=== PATIENT | male | born 1950 | race Caucasian/White ===

== ENCOUNTER 2017-07-10 17:27 | Emergency (ER) | payer OTHER ==
[2017-07-10 19:28] LABS: ALT (SGPT) 15 U/L (8-55); AST (SGOT) 26 U/L (5-34); Albumin 3.9 g/dL (3.4-4.8); Alkaline Phosphatase 95 U/L (40-150); Anion Gap 12 mmol/L (10-20); BUN (Urea Nitrogen) 6 mg/dL (8.4-25.7); Bilirubin, Total 1.3 mg/dL (0.2-1.2); Calc. Creatinine Clearance 0 mL/min (70-130); Calcium 8.6 mg/dL (7.8-10.44); Carbon Dioxide 21 mmol/L (23-31); Chloride 89 mmol/L (98-107); Estimated GFR-MDRD Greater than 90; Globulin 3.2 g/dL (2.4-3.5); Glucose 88 mg/dL (80-115); Protein, Total 7.1 g/dL (5.8-8.1)
[2017-07-10 19:33] LABS: Sodium 118 mmol/L (136-145)
[2017-07-10] MEDS ORDERED: Fentanyl 100 MCG/2 ML VIAL ONE (19:39)
[2017-07-10] MEDS ORDERED: Gabapentin 300 MG CAP PO SCH (21:45)
== END 2017-07-10 22:16 | disposition left against medical advice (07) ==
LOC: ERS 17:27
DX: E87.1 Hypo-osmolality and hyponatremia (principal); E86.0 Dehydration; K74.60 Unspecified cirrhosis of liver; I10 Essential (primary) hypertension; J45.909 Unspecified asthma, uncomplicated; Z71.6 Tobacco abuse counseling; F17.210 Nicotine dependence, cigarettes, uncomplicated
CPT/HCPCS: 36415; 80053; 93005; 96361; 96374; 99406; J3010

== ENCOUNTER 2017-07-10 22:17 | Inpatient (IN) | payer MEDICARE, OTHER ==
[2017-07-11] MEDS ORDERED: HYDROcodone/Acetaminophen 5/325 mg Tablet ONE (01:23)
[2017-07-11] MEDS ORDERED: HYDROcodone/Acetaminophen 5/325 mg Tablet PO PRN ×2 (02:08→08:21)
[2017-07-11] MEDS ORDERED: Sodium Chloride 0.9% 1,000 ML IV SCH (02:15)
[2017-07-11 02:42] VITALS: BMI 19.5
[2017-07-11] MEDS ORDERED: Ondansetron ODT 4 MG TAB PO PRN (04:01)
[2017-07-11] MEDS ORDERED: Ondansetron HCl/PF 4 MG/2 ML Vial IVP PRN (04:01)
--- NOTE | 2017-07-11 04:35 | HP ---
PRIMARY CARE PHYSICIAN: Dr. Bj Polo in [place]. He also sees the Dr. Harjit Yao, who is his pain s pecialist. CHIEF COMPLAINT: "My stomach is messed up." HISTORY OF PRESENT ILLNESS: Mr. Forde is a 67-year-old gentleman who has a history of cirrhosis, also has a history of chronic pain from cervical disk disease as well as multiple fractures in the pa st. He says that over the past approximately week, he says that his stomach has been "messed up." W hen asked what is he mean by this, he says that he has been throwing up every time he tries to eat an ything and then also been having diarrhea since Friday. He also says that his stomach feels upset a nd somewhat hurting. He is very vague in the description. He denies any hematemesis. He denies any melena. He also denies any fevers or chills. He also denies any increase in abdominal girth and sa ys that his weight has been about the same over the past few years. He went to the emergency room in [place] and during his evaluation, it was found that he had sodium of 111 and for this reason, he was transferred to our facility for further evaluation. The patient says he does have a history of c irrhosis, but no other medical condition that he is aware of. He does admit to taking some ibuprofen almost daily. He says usually 1 or 2 in the morning, otherwise, no other complaints. REVIEW OF SYSTEMS: Constitutional: No fevers, no chills, no night sweats, no weight loss. HEENT: He denies any headaches, no dizziness, no visual changes, no sore throat, rhinorrhea, no neck pain, n o adenopathy. Pulmonary: He does say he has congestion off and on and typically will take " head of f his Combivent to help." Cardiovascular: He denies any chest pain, no shortness of breath, no PND, no orthopnea. Gastrointestinal: As stated in the history of present illness. Genitourinary: No u rinary frequency, hematuria, no hesitancy. Neurologic: No focal weakness, numbness, no seizures. P sychiatric: No symptoms of anxiety or depression. Skin and Integument: No skin changes. No rash. PAST MEDICAL HISTORY: Significant for cirrhosis, cervical disk disease, and chronic pain. He has gan d vocal cord cancer, status post radiation therapy. PAST SURGICAL HISTORY: Hernia surgery. He has had multiple fractured bones like his hip, rib fractu res, lung puncture etc. ALLERGIES: PENICILLIN. SOCIAL HISTORY: He is . He has no children of his own. He smokes about third of a pack of c igarettes a day. He also drinks about a 6-pack of beer a day. FAMILY HISTORY: His mother had a history of hypertension and stroke. MEDICATIONS: Include omeprazole 20 mg twice a day, Combivent 2 puffs q.i.d., gabapentin 600 mg in th e day and 1200 in the evening, Percocet one tablet q.6 hours as needed and that is 10/325, methocarba mol 500 mg t.i.d., Sonata 10 mg at bedtime. PHYSICAL EXAMINATION: GENERAL: He is alert and oriented. He appears to be in no distress. He is lucid and appears to be at baseline level of functioning. VITAL SIGNS: Blood pressure was 158/72, heart rate 75, respiratory rate of 18, temperature is 98.8. HEENT: Pupils are equal, round, and reactive. Extraocular muscles are intact. His sclerae anicteri c. Throat no erythema, no exudates. NECK: No adenopathy, no bruits. LUNGS: Clear. He does have some mild expiratory wheezing bilaterally. CARDIOVASCULAR: He has a normal S1, S2. I do not appreciate any S3 or S4. ABDOMEN: Soft, obese, nontender, nondistended. Positive for bowel sounds. No rebound, no guarding. There is no evidence of any fluid wave. EXTREMITIES: He has got 1-2+ pitting edema. NEUROLOGICALLY: The exam is nonfocal. SIGNIFICANT LABORATORY RESULTS: His sodium at the [facility] was 111, at 1851 it was 118. P otassium 4.0, chloride is 89, CO2 is 21, BUN of 6, creatinine 0.73, glucose is 88. His CBC: White b lood cell count was 6.7, hemoglobin 15, hematocrit is 40.9, platelet count is 107. Urinalysis was es sentially normal. Alcohol level was less than 10. He had a CT scan of the brain, which showed no in tracranial abnormalities. ASSESSMENT AND PLAN: This is a 67-year-old gentleman who presents to the emergency room in [place] with some nonspecific abdominal complaints. He was found to have sodium of 111. It is possible harry t the abdominal symptoms could be related to the low sodium; however, if after correction of the sodi um, the abdominal symptoms persist, he may require a GI consultation. He is at risk for peptic ulcer disease with his history of drinking as well as nonsteroidal anti-inflammatory drugs use. 1. For hyponatremia, I suspect this is likely from beer potomania, given the degree of the hyponatre kenneth. Nephrology will be consulted. He has already been started on IV saline and he has had several hours of the IV saline. We will go ahead and repeat his BNP and hold off on continued IV fluids unti l we get the results of the BNP, as we do not want to correct too quickly. Urine sodium and osmolali ty will be checked. 2. History of alcohol abuse, he will be placed on ASE protocol. I did discuss the dangers of excess roselia alcohol use. He seems to shrug this off and say that "you got to of something at some point. " 3. Probable chronic obstructive pulmonary disease, I will place him on DuoNebs during his hospital s jen likely both scheduled and p.r.n.
[2017-07-11] MEDS: oxyCODONE/Acetaminophen 5 mg/325 mg Tablet PO PRN ×4 (05:09→23:54)
[2017-07-11] MEDS: Methocarbamol 500 MG TAB PO SCH ×3 (05:15→23:56)
[2017-07-11 05:35] LABS: Anion Gap 12 mmol/L (10-20); BUN (Urea Nitrogen) 6 mg/dL (8.4-25.7); Calc. Creatinine Clearance 82 mL/min (70-130); Calcium 9.1 mg/dL (7.8-10.44); Carbon Dioxide 21 mmol/L (23-31); Chloride 99 mmol/L (98-107); Estimated GFR-MDRD Greater than 90; Glucose 83 mg/dL (80-115); Potassium 3.8 mmol/L (3.5-5.1); Sodium 128 mmol/L (136-145)
[2017-07-11] MEDS ORDERED: Artificial Tears 18 DROP/0.9 ML EA EYE PRN (08:21)
[2017-07-11] MEDS ORDERED: Loperamide HCl 2 MG CAP PO PRN (08:21)
[2017-07-11] MEDS ORDERED: Senokot 8.6 MG TAB PO PRN (08:21)
[2017-07-11] MEDS ORDERED: Eucerin (Mineral Oil/Petrolatum,White) 30 gm Jar TOP PRN (08:21)
[2017-07-11] MEDS ORDERED: Milk Of Magnesia 30 ML UDCUP PO PRN (08:21)
[2017-07-11] MEDS ORDERED: Loratadine 10 MG TAB PO PRN (08:21)
[2017-07-11] MEDS ORDERED: Sodium Chloride 0.65% Nasal 44 ML BOT EA NARE PRN (08:21)
[2017-07-11] MEDS ORDERED: Acetaminophen 325 MG TAB PO PRN (08:21)
[2017-07-11] MEDS ORDERED: hydrALAZINE 20 MG/ML VIAL SLOW IVP PRN (08:21)
[2017-07-11] MEDS ORDERED: Mag-Al 1200 mg/1200 mg/30 ML UDCUP PO PRN (08:21)
[2017-07-11] MEDS ORDERED: Chloraseptic Spray 180 ml Bottle PO PRN (08:21)
[2017-07-11] MEDS ORDERED: Diabetic Tussin 200 MG/10 ML UDCUP PO PRN (08:21)
[2017-07-11] MEDS: Gabapentin 300 MG CAP PO SCH ×3 (09:43→23:57)
[2017-07-11] MEDS: Nicotine 14 MG PATCH TD SCH (09:44)
[2017-07-11] MEDS: Enoxaparin Sodium 30 MG/0.3 ML SYRINGE SC SCH (09:44)
[2017-07-11] MEDS: Pantoprazole 40 MG VIAL IVP SCH (09:44)
--- NOTE | 2017-07-11 10:42 | CON ---
DATE OF CONSULTATION: 07/11/2017 HISTORY OF PRESENT ILLNESS: Mr. Forde is a 67-year-old white male who was transferred from [facility] due to the hyponatremia. He initially was found to have a serum sodium of 111. He was transf erred to the ER here and was empirically given volume repletion with subsequent improvement of his se rum sodium. With volume repletion and improvement of serum sodium it is very suggestive that he may simply have hypovolemic hyponatremia. This morning he is feeling better, he has been taking Exelon. REVIEW OF SYSTEMS: Positive for epigastric discomfort, positive for nausea and vomiting. No diarrhe a, no constipation. Decreased appetite. Positive for chronic pain. No headache, no fever or chills . No gross hematuria. No dysuria, no urinary frequency. No fever. Positive for abdominal discomfo rt. No sore throat, no diplopia. Appetite fair. HOME MEDICATIONS: Included oxycodone 1 tablet q.6h, Sonata 10 mg at bedtime, omeprazole 20 mg p.o. b.i.d., metoclopramide 500 mg p.o. t.i.d., Combivent 2 puffs q.i.d., gabapentin 1200 mg q.p.m. and 6 00 mg in the a.m. PAST MEDICAL HISTORY: 1. History of chronic obstructive pulmonary disease. 2. COPD. 3. Cirrhosis. 4. Chronic joint pains. 5. Vocal cord cancer - in remission status post radiation. PAST SURGICAL HISTORY: 1. Status post hernia. 2. Status post multiple bone surgeries. ALLERGIES: PENICILLIN. SOCIAL HISTORY: The patient lives around the [facility]. He is . He has no children, bu t he has 3 stepchildren. He smoked for the last 50 years. Currently, smoking one-third pack a day. Alcohol -- 6 pack of beer every day. He is a retired mechanic welder. Education 3 years of college. No IV drug abuse. FAMILY HISTORY: No family history of ESRD. PHYSICAL EXAMINATION: VITAL SIGNS: Blood pressure is 158/72, heart rate 75, respiratory rate 18, temperature 98.8, pulse o x 93%. GENERAL: Noted to be awake, alert, comfortable, not in distress. SKIN: Adequate turgor. HEENT: He has pinkish conjunctivae, anicteric sclerae. NECK: No neck mass, no carotid bruits, no JVD. CHEST: No deformities. LUNGS: Clear breath sounds. No wheezing, no crackles. HEART: Normal sinus rhythm. No murmur, no gallops or rubs. ABDOMEN: Globular, soft, nontender. No masses. EXTREMITIES: No edema, no deformities. LABORATORY: 07/10/2017 - Serum sodium - from [place] [facility] 111. 07/10/2017 - Laboratories from [place] showed sodium of 118, potassium 4, chloride 89, carbon diox almita 21. 07/11/2017 - serum sodium 128, potassium 3.8, chloride 99, carbon dioxide 21, BUN 6, creatinine 0.75, calcium is 9.1. ASSESSMENT AND PLAN: Hyponatremia - most likely secondary to hypovolemic hyponatremia. Much improve d with normal saline. The plan is to continue IV fluid until his serum sodium approximates normal ra nge. Continue supportive care. There is no indication for any hypertonic saline with this patient. Overall, I agree with current management, recheck basic metabolic panel in the a.m.
--- NOTE | 2017-07-11 11:30 | PDOC.PN ---
- Subjective Encounter Start Date: 07/11/17 Encounter Start Time: 08:10 -: old records requested/rev Patient seen and examined. No new complaints. No overnight events - Objective Resuscitation Status: Resuscitation Status FULL:Full Resuscitation MAR Reviewed: Yes Vital Signs & Weight: Vital Signs (12 hours) Temp Pulse Resp BP BP Pulse Ox 07/11/17 09:40 98.1 F 80 20 122/60 92 L 07/11/17 07:56 91 16 92 L 07/11/17 02:36 98.8 F 75 18 158/72 H 93 L 07/11/17 02:07 98.8 F 75 18 93 L Weight Weight 136 lb 1.6 oz Result Diagrams: 07/11/17 04:28 EKG Reviewed by me: Yes Phys Exam - Physical Examination Constitutional: NAD HEENT: PERRLA, moist MMs, sclera anicteric Neck: no JVD, supple Respiratory: no wheezing, no rales, no rhonchi Cardiovascular: RRR, no significant murmur, no rub Gastrointestinal: soft, no distention, positive bowel sounds abdo discomfort Musculoskeletal: no edema, pulses present Neurological: non-focal, normal sensation, moves all 4 limbs Lymphatic: no nodes Psychiatric: normal affect, A&O x 3 Skin: no rash, normal turgor Dx/Plan (1) Abdominal pain Code(s): R10.9 - UNSPECIFIED ABDOMINAL PAIN Status: Acute (2) Hyponatremia Code(s): E87.1 - HYPO-OSMOLALITY AND HYPONATREMIA Status: Acute (3) Alcohol abuse Code(s): F10.10 - ALCOHOL ABUSE, UNCOMPLICATED Status: Chronic (4) Alcoholic cirrhosis of liver Code(s): K70.30 - ALCOHOLIC CIRRHOSIS OF LIVER WITHOUT ASCITES Status: Chronic (5) COPD (chronic obstructive pulmonary disease) Status: Chronic (6) Cervical disc disease Code(s): M50.90 - CERVICAL DISC DISORDER, UNSP, UNSPECIFIED CERVICAL REGION Status: Chronic (7) Chronic pain disorder Code(s): G89.4 - CHRONIC PAIN SYNDROME Status: Chronic (8) Protein-calorie malnutrition, moderate Code(s): E44.0 - MODERATE PROTEIN-CALORIE MALNUTRITION Status: Chronic (9) Tobacco abuse Code(s): Z72.0 - TOBACCO USE Status: Chronic - Plan cont current plan of care * medication reviewed as below * symptomatic treatment * continue iv protonix * replace and correct sodium * repeat labs tomorrow * counselled to avoid alcohol * selected home medication. Review of Systems - Review of Systems Constitutional: negative: fever, chills, sweats, weakness, malaise, other Eyes: negative: Pain, Vision Change, Conjunctivae Inflammation, Eyelid Inflammation, Redness, Other ENT: negative: Ear Pain, Ear Discharge, Nose Pain, Nose Discharge, Nose Congestion, Mouth Pain, Mouth Swelling, Throat Pain, Throat Swelling, Other Respiratory: negative: Cough, Dry, Shortness of Breath, Hemoptysis, SOB with Excertion, Pleuritic Pain, Sputum, Wheezing Cardiovascular: negative: chest pain, palpitations, orthopnea, paroxysmal nocturnal dyspnea, edema, light headedness, other Gastrointestinal: Abdominal Pain. negative: Nausea, Vomiting, Diarrhea, Constipation, Melena, Hematochezia, Other Genitourinary: negative: Dysuria, Frequency, Incontinence, Hematuria, Retention , Other Musculoskeletal: negative: Neck Pain, Shoulder Pain, Arm Pain, Back Pain, Hand Pain, Leg Pain, Foot Pain, Other Skin: negative: Rash, Lesions, Cash, Bruising, Other - Medications/Allergies Allergies/Adverse Reactions: Allergies Allergy/AdvReac Type Severity Reaction Status Date / Time Penicillins Allergy Verified 07/11/17 02:46 Medications: Current Medications Acetaminophen (Tylenol) 650 mg PO Q4H PRN PRN Reason: Headache/Fever or Mild Pain Hydrocodone Bitart/Acetaminophen ([place] 5/325) 1 tab PO Q4H PRN PRN Reason: Moderate Pain (4-6) Al Hydroxide/Mg Hydroxide (Maalox) 15 ml PO Q4H PRN PRN Reason: Heartburn or Indigestion Albuterol/Ipratropium (Duoneb) 3 ml NEB [id number] PRN PRN Reason: SOB &/or Wheezing Albuterol/Ipratropium (Duoneb) 3 ml NEB [id number] [facility] Last Admin: 07/11/17 07:56 Dose: 3 ml Artificial Tears (Tears Naturale) 0 drop EA EYE PRN PRN PRN Reason: Dry Eyes Enoxaparin Sodium (Lovenox) 30 mg SC 0900 [facility] Last Admin: 07/11/17 09:44 Dose: 30 mg Gabapentin (Neurontin) 300 mg PO 2100 [facility] Gabapentin (Neurontin) 600 mg PO DAILY [facility] Last Admin: 07/11/17 09:43 Dose: 600 mg Gabapentin (Neurontin) 900 mg PO 1700 [facility] Guaifenesin (Robitussin Sf) 200 mg PO Q4H PRN PRN Reason: Cough Hydralazine HCl (Apresoline) 10 mg SLOW IVP Q4H PRN PRN Reason: Systolic BP > 180 Loperamide HCl (Imodium) 2 mg PO PRN PRN PRN Reason: Diarrhea/Loose Stools Loratadine (Claritin) 10 mg PO DAILYPRN PRN PRN Reason: Sinus Symptoms Lorazepam (Ativan) 1 mg SLOW IVP Q4H PRN PRN Reason: Anxiety/Agitation Magnesium Hydroxide (Milk Of Magnesium) 30 ml PO DAILYPRN PRN PRN Reason: Constipation Methocarbamol (Robaxin) 500 mg PO TID [facility] Last Admin: 07/11/17 05:15 Dose: 500 mg Mineral Oil/White Petrolatum (Eucerin Cream) 0 gm TOP BIDPRN PRN PRN Reason: Dry Skin Nicotine (Nicoderm Patch) 14 mg TD Q24HR [facility] Last Admin: 07/11/17 09:44 Dose: 14 mg Ondansetron HCl (Zofran Odt) 4 mg PO Q6H PRN PRN Reason: Nausea/Vomiting Last Admin: 07/11/17 05:09 Dose: 4 mg Ondansetron HCl (Zofran) 4 mg IVP Q6H PRN PRN Reason: Nausea/Vomiting Oxycodone/Acetaminophen (Percocet 5/325) 1 tab PO Q6H PRN PRN Reason: Moderate to Severe Pain (6-10) Last Admin: 07/11/17 05:09 Dose: 1 tab Pantoprazole Sodium (Protonix) 40 mg IVP DAILY [facility] Last Admin: 07/11/17 09:44 Dose: 40 mg Phenol (Chloraseptic [place] 180 Ml Bot) 0 ml PO PRN PRN PRN Reason: Sore Throat Senna (Senokot) 2 tab PO HSPRN PRN PRN Reason: Constipation Sodium Chloride (Flush - Normal Saline) 10 ml IVF Q12HR [facility] Last Admin: 07/11/17 09:45 Dose: 10 ml Sodium Chloride (Flush - Normal Saline) 10 ml IVF PRN PRN PRN Reason: Saline Flush Sodium Chloride ([place] Nasal [place] 0.65%) 0 ml EA NARE QIDPRN PRN PRN Reason: Nasal Congestion
[2017-07-11 14:06] LABS: #Eosinphils 0.3 thou/uL (0.0-0.7); #Lymphocytes 0.5 thou/uL (1.20-3.40); #Monocytes 0.6 thou/uL (0.11-0.59); #Neutrophils 4.4 thou/uL (1.40-6.50); %Basophils 0.5 % (0.0-1.0); %Eosinophils 5.8 % (0.0-10.0); %Lymphocytes 8.2 % (21.0-51.0); %Monocytes 10.7 % (0.0-10.0); %Neutrophils 74.8 % (42.0-75.0); Hemoglobin 14.6 g/dL (14.0-18.0); Mean Corpuscular Hemoglobin 34.7 pg (27.0-31.0); Mean Platelet Volume 7.3 fL (7.4-10.4); Platelet Count 125 thou/uL (130-400); RBC Distribution Width 12.5 % (11.5-14.5); Red Blood Cell (RBC) Count 4.21 mill/uL (4.70-6.10); White Blood Cell (WBC) Count 5.9 thou/uL (4.8-10.8)
[2017-07-11 14:55] LABS: Anion Gap 13 mmol/L (10-20); BUN (Urea Nitrogen) 9 mg/dL (8.4-25.7); Calc. Creatinine Clearance 78 mL/min (70-130); Calcium 9.2 mg/dL (7.8-10.44); Carbon Dioxide 20 mmol/L (23-31); Chloride 100 mmol/L (98-107); Estimated GFR-MDRD Greater than 90; Glucose 141 mg/dL (80-115); Potassium 4.3 mmol/L (3.5-5.1); Sodium 129 mmol/L (136-145)
[2017-07-11 14:56] LABS: ALT (SGPT) 15 U/L (8-55); AST (SGOT) 26 U/L (5-34); Albumin 3.7 g/dL (3.4-4.8); Alkaline Phosphatase 104 U/L (40-150); Bilirubin, Direct 0.5 mg/dL (0.1-0.3); Bilirubin, Total 0.7 mg/dL (0.2-1.2); Protein, Total 6.9 g/dL (5.8-8.1)
[2017-07-11] MEDS: Lorazepam 2 MG/ML VIAL SLOW IVP PRN (23:55)
[2017-07-12 05:04] LABS: #Basophils 0.1 thou/uL (0.0-0.2); #Eosinphils 0.3 thou/uL (0.0-0.7); #Lymphocytes 0.7 thou/uL (1.20-3.40); #Monocytes 0.7 thou/uL (0.11-0.59); #Neutrophils 3.2 thou/uL (1.40-6.50); %Eosinophils 6.1 % (0.0-10.0); %Lymphocytes 13.8 % (21.0-51.0); %Monocytes 14.4 % (0.0-10.0); %Neutrophils 64.7 % (42.0-75.0); Hemoglobin 14.3 g/dL (14.0-18.0); Mean Corpuscular HGB CONC 34.1 g/dL (32.0-36.0); Mean Corpuscular Hemoglobin 35.2 pg (27.0-31.0); Platelet Count 124 thou/uL (130-400); RBC Distribution Width 12.5 % (11.5-14.5); Red Blood Cell (RBC) Count 4.07 mill/uL (4.70-6.10)
[2017-07-12 05:19] LABS: ALT (SGPT) 14 U/L (8-55); AST (SGOT) 25 U/L (5-34); Albumin 3.9 g/dL (3.4-4.8); Alkaline Phosphatase 98 U/L (40-150); Anion Gap 13 mmol/L (10-20); BUN (Urea Nitrogen) 8 mg/dL (8.4-25.7); Bilirubin, Total 0.7 mg/dL (0.2-1.2); Calc. Creatinine Clearance 78 mL/min (70-130); Calcium 9.2 mg/dL (7.8-10.44); Carbon Dioxide 21 mmol/L (23-31); Chloride 103 mmol/L (98-107); Estimated GFR-MDRD Greater than 90; Globulin 3.2 g/dL (2.4-3.5); Glucose 95 mg/dL (80-115); Magnesium 2.1 mg/dL (1.6-2.6); Phosphorus 3.8 mg/dL (2.3-4.7); Potassium 3.8 mmol/L (3.5-5.1); Protein, Total 7.1 g/dL (5.8-8.1); Sodium 133 mmol/L (136-145)
[2017-07-12] MEDS: Methocarbamol 500 MG TAB PO SCH ×3 (06:20→21:06)
[2017-07-12] MEDS: oxyCODONE/Acetaminophen 5 mg/325 mg Tablet PO PRN ×3 (06:24→18:15)
--- NOTE | 2017-07-12 09:15 | PDOC.PN ---
- Subjective Encounter Start Date: 07/12/17 Encounter Start Time: 08:00 Patient seen and examined. No new complaints. No overnight events - Objective Resuscitation Status: Resuscitation Status FULL:Full Resuscitation MAR Reviewed: Yes Vital Signs & Weight: Vital Signs (12 hours) Temp Pulse Resp BP BP Pulse Ox 07/12/17 08:15 97.7 F 75 18 158/77 H 91 L 07/12/17 07:46 78 16 98 07/12/17 03:37 97.3 F L 74 18 150/72 H 97 Weight Admit Weight 136 lb 1.6 oz Weight 136 lb 1.6 oz Result Diagrams: 07/12/17 04:24 07/12/17 04:24 EKG Reviewed by me: Yes Phys Exam - Physical Examination Constitutional: NAD HEENT: PERRLA, moist MMs, sclera anicteric Neck: no JVD, supple Respiratory: no wheezing, no rales, no rhonchi Cardiovascular: RRR, no significant murmur, no rub Gastrointestinal: soft, non-tender, no distention, positive bowel sounds Musculoskeletal: no edema, pulses present Neurological: non-focal, normal sensation, moves all 4 limbs Lymphatic: no nodes Psychiatric: normal affect, A&O x 3 Skin: no rash, normal turgor Dx/Plan (1) Abdominal pain Code(s): R10.9 - UNSPECIFIED ABDOMINAL PAIN Status: Acute (2) Hyponatremia Code(s): E87.1 - HYPO-OSMOLALITY AND HYPONATREMIA Status: Acute (3) Alcohol abuse Code(s): F10.10 - ALCOHOL ABUSE, UNCOMPLICATED Status: Chronic (4) Alcoholic cirrhosis of liver Code(s): K70.30 - ALCOHOLIC CIRRHOSIS OF LIVER WITHOUT ASCITES Status: Chronic (5) COPD (chronic obstructive pulmonary disease) Status: Chronic (6) Cervical disc disease Code(s): M50.90 - CERVICAL DISC DISORDER, UNSP, UNSPECIFIED CERVICAL REGION Status: Chronic (7) Chronic pain disorder Code(s): G89.4 - CHRONIC PAIN SYNDROME Status: Chronic (8) Protein-calorie malnutrition, moderate Code(s): E44.0 - MODERATE PROTEIN-CALORIE MALNUTRITION Status: Chronic (9) Tobacco abuse Code(s): Z72.0 - TOBACCO USE Status: Chronic - Plan cont current plan of care * dc tele * transfer to medical * medication reviewed as below * symptomatic treatment. * ambulate as tolerated Review of Systems - Review of Systems ENT: negative: Ear Pain, Ear Discharge, Nose Pain, Nose Discharge, Nose Congestion, Mouth Pain, Mouth Swelling, Throat Pain, Throat Swelling, Other Respiratory: negative: Cough, Dry, Shortness of Breath, Hemoptysis, SOB with Excertion, Pleuritic Pain, Sputum, Wheezing Cardiovascular: negative: chest pain, palpitations, orthopnea, paroxysmal nocturnal dyspnea, edema, light headedness, other Gastrointestinal: negative: Nausea, Vomiting, Abdominal Pain, Diarrhea, Constipation, Melena, Hematochezia, Other Genitourinary: negative: Dysuria, Frequency, Incontinence, Hematuria, Retention , Other Musculoskeletal: negative: Neck Pain, Shoulder Pain, Arm Pain, Back Pain, Hand Pain, Leg Pain, Foot Pain, Other - Medications/Allergies Allergies/Adverse Reactions: Allergies Allergy/AdvReac Type Severity Reaction Status Date / Time Penicillins Allergy Verified 07/11/17 02:46 Medications: Current Medications Acetaminophen (Tylenol) 650 mg PO Q4H PRN PRN Reason: Headache/Fever or Mild Pain Hydrocodone Bitart/Acetaminophen ([place] 5/325) 1 tab PO Q4H PRN PRN Reason: Moderate Pain (4-6) Al Hydroxide/Mg Hydroxide (Maalox) 15 ml PO Q4H PRN PRN Reason: Heartburn or Indigestion Albuterol/Ipratropium (Duoneb) 3 ml NEB [id number] PRN PRN Reason: SOB &/or Wheezing Albuterol/Ipratropium (Duoneb) 3 ml NEB [id number] [facility] Last Admin: 07/12/17 07:46 Dose: 3 ml Artificial Tears (Tears Naturale) 0 drop EA EYE PRN PRN PRN Reason: Dry Eyes Enoxaparin Sodium (Lovenox) 30 mg SC 0900 [facility] Last Admin: 07/11/17 09:44 Dose: 30 mg Gabapentin (Neurontin) 300 mg PO 2100 [facility] Last Admin: 07/11/17 23:57 Dose: 300 mg Gabapentin (Neurontin) 600 mg PO DAILY [facility] Last Admin: 07/11/17 09:43 Dose: 600 mg Gabapentin (Neurontin) 900 mg PO 1700 [facility] Last Admin: 07/11/17 16:23 Dose: 900 mg Guaifenesin (Robitussin Sf) 200 mg PO Q4H PRN PRN Reason: Cough Hydralazine HCl (Apresoline) 10 mg SLOW IVP Q4H PRN PRN Reason: Systolic BP > 180 Loperamide HCl (Imodium) 2 mg PO PRN PRN PRN Reason: Diarrhea/Loose Stools Loratadine (Claritin) 10 mg PO DAILYPRN PRN PRN Reason: Sinus Symptoms Lorazepam (Ativan) 1 mg SLOW IVP Q4H PRN PRN Reason: Anxiety/Agitation Last Admin: 07/11/17 23:55 Dose: 1 mg Magnesium Hydroxide (Milk Of Magnesium) 30 ml PO DAILYPRN PRN PRN Reason: Constipation Methocarbamol (Robaxin) 500 mg PO TID [facility] Last Admin: 07/12/17 06:20 Dose: 500 mg Mineral Oil/White Petrolatum (Eucerin Cream) 0 gm TOP BIDPRN PRN PRN Reason: Dry Skin Nicotine (Nicoderm Patch) 14 mg TD Q24HR [facility] Last Admin: 07/11/17 09:44 Dose: 14 mg Ondansetron HCl (Zofran Odt) 4 mg PO Q6H PRN PRN Reason: Nausea/Vomiting Last Admin: 07/11/17 05:09 Dose: 4 mg Ondansetron HCl (Zofran) 4 mg IVP Q6H PRN PRN Reason: Nausea/Vomiting Oxycodone/Acetaminophen (Percocet 5/325) 1 tab PO Q6H PRN PRN Reason: Moderate to Severe Pain (6-10) Last Admin: 07/12/17 06:24 Dose: 1 tab Pantoprazole Sodium (Protonix) 40 mg IVP DAILY [facility] Last Admin: 07/11/17 09:44 Dose: 40 mg Phenol (Chloraseptic [place] 180 Ml Bot) 0 ml PO PRN PRN PRN Reason: Sore Throat Senna (Senokot) 2 tab PO HSPRN PRN PRN Reason: Constipation Sodium Chloride (Flush - Normal Saline) 10 ml IVF Q12HR [facility] Last Admin: 07/11/17 23:57 Dose: 10 ml Sodium Chloride (Flush - Normal Saline) 10 ml IVF PRN PRN PRN Reason: Saline Flush Sodium Chloride ([place] Nasal [place] 0.65%) 0 ml EA NARE QIDPRN PRN PRN Reason: Nasal Congestion
[2017-07-12] MEDS: Nicotine 14 MG PATCH TD SCH (09:17)
[2017-07-12] MEDS: Gabapentin 300 MG CAP PO SCH ×3 (09:17→21:06)
[2017-07-12] MEDS: Enoxaparin Sodium 30 MG/0.3 ML SYRINGE SC SCH (09:19)
[2017-07-12] MEDS: Pantoprazole 40 MG VIAL IVP SCH (09:19)
--- NOTE | 2017-07-12 11:05 | PRG ---
DATE OF SERVICE: 07/12/2017 SUBJECTIVE: Mr. Forde is a 67-year-old white male, who was seen for hyponatremia. At that time, we felt that this was secondary to hypovolemic hyponatremia. He was given normal saline with improve ment of serum sodium. We felt that this was secondary to hypovolemic hyponatremia. His serum sodium this morning is much improved. He is mentating well. OBJECTIVE: GENERAL: The patient denies any chest pain, shortness of breath. VITAL SIGNS: Blood pressure is noted at 158/77, heart rate 75, respiratory rate 18, temperature 97.7 , pulse ox 91%. GENERAL: He is awake, alert, supine, comfortable, not in distress. SKIN: Adequate turgor. HEENT: Pinkish conjunctivae. Anicteric sclerae. NECK: No neck mass, no carotid bruits, no JVD. CHEST: No deformities. LUNGS: Clear breath sounds. No wheezing, no crackles. HEART: Normal sinus rhythm. No murmur, no gallops or rubs. ABDOMEN: Globular, soft, nontender, no masses. EXTREMITIES: No edema, no deformities. MEDICATIONS: 07/12/2017, reviewed. LABORATORY DATA: 07/12/2017 - White count 5, hemoglobin 14.3. Sodium 133, potassium 3.8, chloride 1 03, carbon dioxide 13, BUN 8, creatinine 0.79. Phosphorus is 3.8, magnesium 2.1. LFTs normal. ASSESSMEN AND PLAN: Hypovolemic hyponatremia - Encourage the patient to increase salt intake. Serum sodium is much improved with normal saline. Serum sodium is now noted at 133. Continue current man agement. From the renal point of view, this patient can discharge any time. We will be signing off.
[2017-07-12] MEDS: Lorazepam 2 MG/ML VIAL SLOW IVP PRN (21:41)
[2017-07-13] MEDS: oxyCODONE/Acetaminophen 5 mg/325 mg Tablet PO PRN ×3 (00:42→12:57)
[2017-07-13] MEDS: Lorazepam 2 MG/ML VIAL SLOW IVP PRN ×2 (06:17→13:01)
[2017-07-13] MEDS: Pantoprazole 40 MG VIAL IVP SCH (08:03)
[2017-07-13] MEDS: Enoxaparin Sodium 30 MG/0.3 ML SYRINGE SC SCH (08:04)
[2017-07-13] MEDS: Gabapentin 300 MG CAP PO SCH ×2 (08:04→16:33)
[2017-07-13] MEDS: Methocarbamol 500 MG TAB PO SCH ×2 (08:04→16:33)
[2017-07-13] MEDS: Nicotine 14 MG PATCH TD SCH (08:12)
--- NOTE | 2017-07-13 09:17 | DIS ---
DATE OF ADMISSION: 07/11/2017 DATE OF DISCHARGE: 07/13/2017 PRIMARY CARE PHYSICIAN: [facility] call admission. DISCHARGE DISPOSITION: Home. PRIMARY DISCHARGE DIAGNOSES: 1. Abdominal pain, improved, unclear etiology. 2. Hyponatremia, resolved. SECONDARY DISCHARGE DIAGNOSES: Alcohol abuse, protein calorie malnutrition, chronic neck pain, chron ic obstructive pulmonary disease, tobacco abuse disorder, cervical disk disease. PRIMARY PROCEDURE/OPERATION: None. RADIOLOGICAL INVESTIGATION: None. SIGNIFICANT LABORATORY DATA: WBC 5.0, hemoglobin 14.3, MCV 103, platelets 124, sodium 133, creatinin e 0.79. LFT normal. DISCHARGE MEDICATIONS: The patient will continue all his previous medications. Albuterol inhalation as directed, gabapentin 600 mg in the morning, 300 mg at evening and 900 mg at bedtime; Combivent Re spimat q.6 hourly, methocarbamol 500 mg p.o. t.i.d., omeprazole 20 mg p.o. b.i.d., oxycodone one tabl et q.6 hourly p.r.n., Sonata 10 mg p.o. at bedtime. CONTRAINDICATIONS: None. CODE STATUS: FULL CODE. INPATIENT EXTENSION SUPERVISOR: Dr. Bhatia was consulted while in hospital. TEST RESULTS PENDING ON DISCHARGE: None. ALLERGIES: PENICILLIN. DISCHARGE PLAN: Post hospital, patient is advised to follow up with primary care physician. HOSPITAL COURSE: A 67-year-old male with the above mentioned medical problem who was admitted by Dr. Pugh on 07/11/2017. Please see her H&P for further details. This patient was presented to the em ergency room with epigastric abdominal pain. He has alcohol abuse history and he had hyponatremia. His hyponatremia was attributed to be due to beer potomania. We provided counseling to avoid alcohol abuse while in the hospital. His sodium was improved back to normal. His pain was controlled with his pain medication. While in hospital, we provided healthy lifestyle measure education. This patient is back to his norm al. He was given nutritional supplement with Ensure for his more protein calorie malnutrition. Inaiden dutta, he was admitted to telemetry floor, but subsequently we transferred him to medical floor. Patient is doing very well. He is hemodynamically stable. Nephrology signed off on his case. Today, I saw this patient at bedside and examined. All review of systems reviewed with him and negat roselia. PHYSICAL EXAMINATION: VITAL SIGNS: Currently, temperature 97.8, pulse 83, respiratory rate 16, saturation 90% on room air, blood pressure 147/75, weight 137 pounds. GENERAL: The patient is currently alert, awake, no obvious acute distress. HEAD: Normocephalic, atraumatic. EYES: Pupils round, reactive to light. Extraocular muscle intact. ENT: Oropharynx within normal limits. Moist mucous membranes. NECK: Supple, no JVD, no thyromegaly, no carotid bruit. LUNGS: Clear. CARDIAC: S1, S2 regular without any murmur. ABDOMEN: Soft and benign. EXTREMITIES: No edema. NEUROLOGIC: Nonfocal examination. The patient is medically stable for discharge today.
--- NOTE | 2017-07-13 10:14 | PDOC.PN ---
- Subjective Encounter Start Date: 07/13/17 Encounter Start Time: 08:00 Patient seen and examined. No new complaints. No overnight events - Objective Resuscitation Status: Resuscitation Status FULL:Full Resuscitation MAR Reviewed: Yes Vital Signs & Weight: Vital Signs (12 hours) Temp Pulse Resp BP BP Pulse Ox 07/13/17 08:06 97.6 F 84 16 160/85 H 91 L 07/13/17 08:00 97.6 F 84 16 07/13/17 04:00 97.8 F 83 16 147/75 H 90 L 07/13/17 00:11 94 18 98 07/12/17 23:21 97.8 F 102 H 20 156/83 H 94 L Weight Admit Weight 136 lb 1.6 oz Weight 137 lb 3.2 oz I&O: 07/12/17 07/13/17 07/14/17 06:59 06:59 06:59 Intake Total 480 Balance 480 Result Diagrams: 07/12/17 04:24 07/12/17 04:24 Phys Exam - Physical Examination Constitutional: NAD HEENT: PERRLA, moist MMs, sclera anicteric Neck: no JVD, supple Respiratory: no wheezing, no rales, no rhonchi Cardiovascular: RRR, no significant murmur, no rub Gastrointestinal: soft, non-tender, no distention, positive bowel sounds Musculoskeletal: no edema, pulses present Neurological: non-focal, normal sensation Psychiatric: normal affect, A&O x 3 Skin: no rash, normal turgor Dx/Plan (1) Abdominal pain Code(s): R10.9 - UNSPECIFIED ABDOMINAL PAIN Status: Acute (2) Hyponatremia Code(s): E87.1 - HYPO-OSMOLALITY AND HYPONATREMIA Status: Acute (3) Alcohol abuse Code(s): F10.10 - ALCOHOL ABUSE, UNCOMPLICATED Status: Chronic (4) Alcoholic cirrhosis of liver Code(s): K70.30 - ALCOHOLIC CIRRHOSIS OF LIVER WITHOUT ASCITES Status: Chronic (5) COPD (chronic obstructive pulmonary disease) Status: Chronic (6) Cervical disc disease Code(s): M50.90 - CERVICAL DISC DISORDER, UNSP, UNSPECIFIED CERVICAL REGION Status: Chronic (7) Chronic pain disorder Code(s): G89.4 - CHRONIC PAIN SYNDROME Status: Chronic (8) Protein-calorie malnutrition, moderate Code(s): E44.0 - MODERATE PROTEIN-CALORIE MALNUTRITION Status: Chronic (9) Tobacco abuse Code(s): Z72.0 - TOBACCO USE Status: Chronic - Plan cont current plan of care * medication reviewed as below * symptomatic treatment * see discharge gladys. Review of Systems - Review of Systems Eyes: negative: Pain, Vision Change, Conjunctivae Inflammation, Eyelid Inflammation, Redness, Other ENT: negative: Ear Pain, Ear Discharge, Nose Pain, Nose Discharge, Nose Congestion, Mouth Pain, Mouth Swelling, Throat Pain, Throat Swelling, Other Respiratory: negative: Cough, Dry, Shortness of Breath, Hemoptysis, SOB with Excertion, Pleuritic Pain, Sputum, Wheezing Cardiovascular: negative: chest pain, palpitations, orthopnea, paroxysmal nocturnal dyspnea, edema, light headedness, other Gastrointestinal: negative: Nausea, Vomiting, Abdominal Pain, Diarrhea, Constipation, Melena, Hematochezia, Other Genitourinary: negative: Dysuria, Frequency, Incontinence, Hematuria, Retention , Other Musculoskeletal: negative: Neck Pain, Shoulder Pain, Arm Pain, Back Pain, Hand Pain, Leg Pain, Foot Pain, Other Skin: negative: Rash, Lesions, Cash, Bruising, Other - Medications/Allergies Allergies/Adverse Reactions: Allergies Allergy/AdvReac Type Severity Reaction Status Date / Time Penicillins Allergy Verified 07/11/17 02:46 Medications: Current Medications Acetaminophen (Tylenol) 650 mg PO Q4H PRN PRN Reason: Headache/Fever or Mild Pain Hydrocodone Bitart/Acetaminophen ([place] 5/325) 1 tab PO Q4H PRN PRN Reason: Moderate Pain (4-6) Al Hydroxide/Mg Hydroxide (Maalox) 15 ml PO Q4H PRN PRN Reason: Heartburn or Indigestion Albuterol/Ipratropium (Duoneb) 3 ml NEB [id number] PRN PRN Reason: SOB &/or Wheezing Albuterol/Ipratropium (Duoneb) 3 ml NEB [id number] [facility] Last Admin: 07/13/17 08:45 Dose: Not Given Artificial Tears (Tears Naturale) 0 drop EA EYE PRN PRN PRN Reason: Dry Eyes Enoxaparin Sodium (Lovenox) 30 mg SC 0900 [facility] Last Admin: 07/13/17 08:04 Dose: 30 mg Gabapentin (Neurontin) 300 mg PO 2100 [facility] Last Admin: 07/12/17 21:06 Dose: 300 mg Gabapentin (Neurontin) 600 mg PO DAILY [facility] Last Admin: 07/13/17 08:04 Dose: 600 mg Gabapentin (Neurontin) 900 mg PO 1700 [facility] Last Admin: 07/12/17 16:29 Dose: 900 mg Guaifenesin (Robitussin Sf) 200 mg PO Q4H PRN PRN Reason: Cough Hydralazine HCl (Apresoline) 10 mg SLOW IVP Q4H PRN PRN Reason: Systolic BP > 180 Loperamide HCl (Imodium) 2 mg PO PRN PRN PRN Reason: Diarrhea/Loose Stools Loratadine (Claritin) 10 mg PO DAILYPRN PRN PRN Reason: Sinus Symptoms Lorazepam (Ativan) 1 mg SLOW IVP Q4H PRN PRN Reason: Anxiety/Agitation Last Admin: 07/13/17 06:17 Dose: 1 mg Magnesium Hydroxide (Milk Of Magnesium) 30 ml PO DAILYPRN PRN PRN Reason: Constipation Methocarbamol (Robaxin) 500 mg PO TID [facility] Last Admin: 07/13/17 08:04 Dose: 500 mg Mineral Oil/White Petrolatum (Eucerin Cream) 0 gm TOP BIDPRN PRN PRN Reason: Dry Skin Nicotine (Nicoderm Patch) 14 mg TD Q24HR [facility] Last Admin: 07/13/17 08:12 Dose: 14 mg Ondansetron HCl (Zofran Odt) 4 mg PO Q6H PRN PRN Reason: Nausea/Vomiting Last Admin: 07/11/17 05:09 Dose: 4 mg Ondansetron HCl (Zofran) 4 mg IVP Q6H PRN PRN Reason: Nausea/Vomiting Oxycodone/Acetaminophen (Percocet 5/325) 1 tab PO Q6H PRN PRN Reason: Moderate to Severe Pain (6-10) Last Admin: 07/13/17 06:13 Dose: 1 tab Pantoprazole Sodium (Protonix) 40 mg IVP DAILY [facility] Last Admin: 07/13/17 08:03 Dose: 40 mg Phenol (Chloraseptic [place] 180 Ml Bot) 0 ml PO PRN PRN PRN Reason: Sore Throat Senna (Senokot) 2 tab PO HSPRN PRN PRN Reason: Constipation Sodium Chloride (Flush - Normal Saline) 10 ml IVF Q12HR [facility] Last Admin: 07/13/17 08:04 Dose: 10 ml Sodium Chloride (Flush - Normal Saline) 10 ml IVF PRN PRN PRN Reason: Saline Flush Last Admin: 07/13/17 08:05 Dose: 10 ml Sodium Chloride ([place] Nasal [place] 0.65%) 0 ml EA NARE QIDPRN PRN PRN Reason: Nasal Congestion
[2017-07-13 16:29] VITALS: BP 148/81; TEMP 97.9
== END 2017-07-13 17:11 | disposition home or self-care (01) | DRG 641 ==
LOC: ERS 22:17 → 2NO 07-11 00:33 → T4-A 07-12 21:31
PROVIDERS: ADMIT Internal Medicine; ATTEND Internal Medicine
DX: E87.1 Hypo-osmolality and hyponatremia (principal); E44.0 Moderate protein-calorie malnutrition; Z68.1 Body mass index [BMI] 19.9 or less, adult; J44.9 Chronic obstructive pulmonary disease, unspecified; K70.30 Alcoholic cirrhosis of liver without ascites; F17.210 Nicotine dependence, cigarettes, uncomplicated; G89.29 Other chronic pain; M50.90 Cervical disc disorder, unspecified, unspecified cervical region; R10.13 Epigastric pain; F10.10 Alcohol abuse, uncomplicated; Z85.21 Personal history of malignant neoplasm of larynx; Z92.3 Personal history of irradiation; Z88.0 Allergy status to penicillin; Z79.899 Other long term (current) drug therapy
CPT/HCPCS: 36415; 80048; 80053; 80076; 83735; 84100; 85025; 93005; 94640; 96360; 96361; 96374; 99406; A4216; C9113; J1650; J2060; J3010; J7620; Q0162